=== PATIENT | female | born 1985 | race Caucasian/White ===

== ENCOUNTER 2017-03-09 10:48 | Emergency (ER) | payer OTHER ==
[2017-03-09 10:48] VITALS: BMI 34.8
[2017-03-09 11:05] VITALS: RESP 18; TEMP 99
--- NOTE | 2017-03-09 11:08 | ED PDOC ---
Arrival/HPI - General Chief Complaint: ENT Problem Time Seen by Provider: 03/09/17 11:08 Historian: Patient - History of Present Illness Narrative History of Present Illness (Text): 03/09/17 11:08 31 y/o female, no significant pmh, nkda, c/o rt. sided neck pain and painful swallowing x 1 week with no fall or trauma. Pt. stated that she feels a painful bump under the rt. sided jaw line, admits recently had a nasal congestion and and throat pain which resolving, no night sweat, no weight loss, mild painful to swallow but able to drink fluid and swallow solid food without any difficulty. pt. has no neck pain, no tongue swelling, no other medical or psychological complaints. Past Medical History - Provider Review Nursing Documentation Reviewed: Yes - Psychiatric Hx Substance Use: No - Anesthesia Hx Anesthesia: No Hx Anesthesia Reactions: No Hx Malignant Hyperthermia: No Family/Social History - Physician Review Nursing Documentation Reviewed: Yes Family/Social History: Unknown Family HX Smoking Status: Never Smoked Hx Alcohol Use: No Hx Substance Use: No Allergies/Home Meds Allergies/Adverse Reactions: Allergies No Known Allergies Allergy (Verified 05/24/14 11:39) Review of Systems - Review of Systems Constitutional: absent: Fatigue, Fevers Eyes: absent: Vision Changes ENT: Sore Throat. absent: Hearing Changes Respiratory: absent: SOB, Cough Cardiovascular: absent: Chest Pain Gastrointestinal: absent: Abdominal Pain, Diarrhea, Nausea, Vomiting Hemo/Lymphatic: Adenopathy. absent: Easy Bleeding, Easy Bruising Physical Exam Vital Signs Reviewed: Yes Vital Signs Temp Pulse Resp BP Pulse Ox 03/09/17 11:58 74 18 108/65 100 03/09/17 11:01 99 F 97 H 18 89/64 L 99 Temperature: Afebrile Pulse: Regular Respiratory Rate: Normal Appearance: Positive for: Well-Appearing, Non-Toxic, Comfortable Pain Distress: Mild Mental Status: Positive for: Alert and Oriented X 3 - Systems Exam Head: Present: Atraumatic, Normocephalic Pupils: Present: PERRL Extroacular Muscles: Present: EOMI Conjunctiva: Present: Normal Ears: Present: NORMAL TM, Normal Canal. No: Erythema Mouth: Present: Moist Mucous Membranes Pharnyx: Present: Other (no tongue swelling, no oral floor swelling. ). No: ERYTHEMA, EXUDATE, TONSILS ENLARGED, Peritonsilar Swelling, Uvular Deviation, Muffled/Hoarse Voice, Strider, Soft Palate/Uvular Edema Nose (Internal): Present: No Active Bleeding, Moist. No: Rhinorrhea, Septal Hematoma, Epistaxis Neck: Present: Normal Range of Motion, Trachea Midline. No: MIDLINE TENDERNESS , Paraspinal Tenderness, Lymphadenopathy Respiratory/Chest: Present: Clear to Auscultation, Good Air Exchange. No: Respiratory Distress, Accessory Muscle Use Cardiovascular: Present: Regular Rate and Rhythm, Normal S1, S2. No: Murmurs Abdomen: Present: Normal Bowel Sounds. No: Tenderness, Distention, Peritoneal Signs Back: Present: Normal Inspection. No: Midline Tenderness, Paraspinal Tenderness Upper Extremity: Present: Normal Inspection. No: Cyanosis, Edema Lower Extremity: Present: Normal Inspection. No: Edema Neurological: Present: GCS=15, CN II-XII Intact, Speech Normal Skin: Present: Warm, Dry, Normal Color. No: Rashes Lymphatic: Present: Cervical Adenopathy (+rt. submandibular lymphenpathy noted with no neck mass) Psychiatric: Present: Alert, Oriented x 3, Normal Insight, Normal Concentration Medical Decision Making ED Course and Treatment: 03/09/17 11:34 -urine hcg negative. -Discharge home with augmentin, motrin, follow up with your own pmd and ENT within 2 days, return to the ER for any new or worsening signs or symptomks. - PA / [employer] / Resident Statement MD/DO has reviewed & agrees with the documentation as recorded. Disposition/Present on Arrival - Present on Arrival Any Indicators Present on Arrival: No History of DVT/PE: No History of Uncontrolled Diabetes: No Urinary Catheter: No History of Decub. Ulcer: No History Surgical Site Infection Following: None - Disposition Have Diagnosis and Disposition been Completed?: Yes Diagnosis: Lymphadenopathy of right cervical region Disposition: HOME/ ROUTINE Disposition Time: 11:35 Patient Plan: Discharge Patient Problems: Current Active Problems Problem Status Onset Lymphadenopathy of right cervical region Acute Condition: GOOD Additional Instructions: -Discharge home with augmentin, motrin, follow up with your own pmd and ENT within 2 days, return to the ER for any new or worsening signs or symptomks. Prescriptions: Amoxicillin/Clavulanate [Augmentin 875 MG-125 MG] 1 tab PO BID #20 tab Ibuprofen [Motrin Tab] 600 mg PO QID PRN #24 tab PRN Reason: Other Referrals: Leonard So, [[facility]] - Follow up with primary Forms: [employer] ([place]), WORK NOTE
[2017-03-09 11:58] VITALS: BP 108/65; PULSE 74; O2SAT 100
== END 2017-03-09 12:31 | disposition home or self-care (01) ==
LOC: ED 10:48
DX: R59.1 Generalized enlarged lymph nodes (principal)